=== PATIENT | female | born 1955 | race Caucasian/White ===

== ENCOUNTER → 2023-04-01 15:00 | Outpatient (BNV) | payer MEDICARE, MEDICAID, SELFPAY | PROVIDERS: Visit Provider Radiology Diagnostic Radiology | DX: Z12.31 Encounter for screening mammogram for malignant neoplasm of breast (principal) | CPT/HCPCS: 77063; 77067 ==

== ENCOUNTER 2023-04-01 15:05 | Outpatient (REF) | payer MEDICARE, MEDICAID, SELFPAY ==
--- NOTE | ~2023-04-01 | MM_ITS ---
EXAMINATION: MM SCREENING DIGITAL BREAST TOMOSYNTHESIS, BILATERAL CLINICAL INFORMATION: Screening. Asymptomatic. COMPARISON: Mammography: There are no recent previous examinations for comparison. The last mammogram on this patient placed 14 years ago. Those images are unavailable for comparison. TECHNIQUE: Digital breast tomosynthesis is performed in both the craniocaudal and mediolateral oblique views along with computer-aided detection (CAD). Synthesized 2D images are generated from the tomosynthesis. FINDINGS: There are scattered areas of fibroglandular density (ACR BI-RADS breast composition Category b). There are no significant masses, abnormal calcifications, or other abnormalities. MM/MM tomosynthesis screening BI IMPRESSION: No mammographic evidence of malignancy. ASSESSMENT: BI-RADS BI-RADS 1 - Negative RECOMMENDATION: Routine annual mammography screening. 1 year F/U This examination should not preclude the clinical evaluation of a suspicious palpable abnormality. This patient's information was entered into a reminder system with a target due date for their next mammogram.
== END 2023-04-01 15:06 | disposition home or self-care (01) ==
LOC: HO.MAMMO 15:05
PROVIDERS: Visit Provider Internal Medicine
DX: Z12.31 Encounter for screening mammogram for malignant neoplasm of breast (principal)
CPT/HCPCS: 77063; 77067

== ENCOUNTER 2023-05-02 11:07 | Emergency (ER) | payer MEDICARE, MEDICAID, SELFPAY ==
--- NOTE | ~2023-05-02 | XR_ITS ---
Examination: Bilateral knee. CLINICAL INDICATION: Fall and bruising. TECHNIQUE: 4 views each knee. COMPARISON: Right knee 10/26/2013 and 05/24/2010. FINDINGS: RIGHT KNEE: There is mild loss of medial and patellofemoral compartment joint space with moderate periarticular spurring. There is mild suprapatellar joint effusion. No loose bodies or bony erosive changes seen. The soft tissues are normal. LEFT KNEE: There is mild loss of medial and patellofemoral compartment joint space with moderate periarticular spurring. No loose body seen. There is mild suprapatellar joint effusion. No fracture or dislocation seen. XR/XR knee RT 3V IMPRESSION: Advanced degenerative changes bilateral knee joints with joint effusion. No visible loose bodies, acute fracture or dislocation seen.
--- NOTE | ~2023-05-02 | XR_ITS ---
Examination: Bilateral knee. CLINICAL INDICATION: Fall and bruising. TECHNIQUE: 4 views each knee. COMPARISON: Right knee 10/26/2013 and 05/24/2010. FINDINGS: RIGHT KNEE: There is mild loss of medial and patellofemoral compartment joint space with moderate periarticular spurring. There is mild suprapatellar joint effusion. No loose bodies or bony erosive changes seen. The soft tissues are normal. LEFT KNEE: There is mild loss of medial and patellofemoral compartment joint space with moderate periarticular spurring. No loose body seen. There is mild suprapatellar joint effusion. No fracture or dislocation seen. XR/XR knee LT 3V IMPRESSION: Advanced degenerative changes bilateral knee joints with joint effusion. No visible loose bodies, acute fracture or dislocation seen.
--- NOTE | ~2023-05-02 | CT_ITS ---
EXAMINATION: CT HEAD WITHOUT CONTRAST CLINICAL INFORMATION: Fall head strike COMPARISON: CT head from 03/20/2018 TECHNIQUE: Contiguous axial imaging was performed from the skull base to vertex without intravenous administration of contrast. This CT examination was performed using dose optimization techniques as appropriate, variously including the following: *Automated exposure control *Adjustment of mA and/or kV according to patient size (this includes techniques or standardized protocols for targeted exams where dose is matched to indication/reason for exam; i.e. extremities or head) *Use of iterative reconstruction technique DLP: 916 mGy-cm FINDINGS: There is no evidence of acute intracranial hemorrhage or territorial infarction. Chronic white matter small vessel ischemic changes. No abnormal mass effect or midline shift is seen. Wyatt to white matter differentiation is well preserved. No extra-axial fluid collections are identified. The ventricles are normal in size. There is no abnormal attenuation within the brain parenchyma. The osseous structures and soft tissues are normal. The mastoid air cells and visualized portions of the paranasal sinuses are well aerated. CT/CT cervical spine wo IV con IMPRESSION: 1. No acute intracranial pathology. 2. Chronic white matter small vessel ischemic changes. EXAMINATION: Noncontrast CT scan of the cervical spine. INDICATION: Fall COMPARISON: None. TECHNIQUE: Helical, multidetector axial images were obtained from the occiput to the upper thorax. Coronal and sagittal reformats of the cervical spine were provided for interpretation. DLP: 916 mGy-cm FINDINGS: No acute fractures or dislocations of the cervical spine are seen. Straightening of the normal cervical curvature which may be secondary to patient positioning versus muscle spasm. Multilevel degenerative changes. Anatomic alignment and positioning of the vertebral bodies and posterior elements is noted. The atlantoaxial joint and craniovertebral articulations are normal without evidence of subluxation. There is no prevertebral soft tissue swelling. The thyroid gland and visualized portions of the lung apices and mediastinum are unremarkable. IMPRESSION: 1. No acute visible fracture or dislocation. 2. Straightening of the normal cervical curvature which may be secondary to patient positioning versus muscle spasm. 3. Multilevel degenerative changes.
--- NOTE | 2023-05-02 11:18 | ED_ITS ---
HPI - Fall General Chief Complaint: Fall Stated Complaint: Fall Time Seen by Provider: 05/02/23 12:41 Source: patient and family Mode of arrival: ambulatory Limitations: no limitations History of Present Illness HPI Narrative: 67 yo female here with complaints of abrasion to face, swelling/pain to both knees after a fall yesterday. Patient reports she tripped on uneven sidewalk yesterday landing on both knees and hitting her mouth on the ground. No LOC. NO AC therapy use. Had headache last night none today. Here with complaints of abrasion to face, pain to both knees. No chest pain, abdominal pain, neck pain, back pain, vomiting, headache or vision changes. Tetanus UTD. No associated weakness, numbess, tingling in her LE. Related Data Allergies Allergy/AdvReac Type Severity Reaction Status Date / Time cinnamon [Cinnamon] Allergy Severe HIVES Verified 05/02/23 11:19 From Benadryl Allergy Severe SWELLING Uncoded 11/10/19 16:16 Review of Systems 2 Review of Systems: Yes all other systems are reviewed and are negative Constitutional: Constitutional: Reports no additional constitutional complaints, Denies body ache(s), Denies chills, Denies fever(s), Denies headache(s) and Denies weakness Eyes: Eyes: Reports no additional eye complaints and Denies change in vision ENT: Reports system reviewed and no additional complaints, except as documented, Denies dizziness, Denies headache(s), Denies nasal congestion, Denies nasal discharge and Denies neck pain Cardiovascular: Cardiovascular: Reports no additional cardiovascular complaints, Denies chest pain, Denies leg edema and Denies dyspnea Respiratory: Respiratory: Reports no additional respiratory complaints, Denies cough and Denies dyspnea Gastrointestinal: Gastrointestinal: Reports no additional gastrointestinal complaints, Denies abdominal pain, Denies diarrhea, Denies nausea and Denies vomiting Genitourinary: Genitourinary: Reports no additional female genitourinary complaints and Denies urinary incontinence Musculoskeletal: Musculoskeletal: Reports no additional musculoskeletal complaints, Denies back pain, Reports arthralgias, Reports joint swelling, Reports limited range of motion, Denies neck pain, Denies numbness and Denies tingling Integumentary/Breasts: Skin/Breast: Reports system reviewed and no additional complaints, except as docu and Denies rash Neurologic: Reports system reviewed and no additional complaints, except as documented, Denies Abnormal speech present, Denies dizziness, Denies headache(s), Denies numbness, Denies tingling and Denies weakness PMFSH Past Medical History Attestation statement: The following information was validated with the patient. Source: old records reviewed and nursing notes reviewed Social History Social History Advance Directives: No Physical Exam 2 Vital Signs: Vital Signs: Last Vital Signs Temp 97 F 05/02/23 11:20 Pulse 64 05/02/23 11:20 Resp 16 05/02/23 11:20 BP 135/78 05/02/23 11:20 Pulse Ox 97 05/02/23 11:20 O2 Del Method Room Air 05/02/23 11:20 BMI result Body Mass Index 24.7 Const: General: cooperative, healthy appearing, comfortable and no acute distress Orientation/consciousness: patient oriented x3 Limitations: no limitations HEENT: Head: Yes normal to inspection and No Goddard's sign Ears: hearing grossly normal bilaterally and TM's normal bilaterally General nose exam: N ormal external nose present Face and sinus: Yes normal facial exam Mouth: Normal oral and palatal mucosa present Mouth/tongue images: 1. +abrasion Teeth and gingiva: dentures Throat: Yes posterior oropharynx normal Eyes: General: appearance normal, both eyes and all related structures P upils: Equal, round and reactive pupils present Neck: Other: No cervical midline tenderness, step offs or deformities Neck: Yes normal visual inspection and Yes full ROM Chest: Chest palpation & inspection: normal inspection of the chest Resp: Effort & Inspection: normal respiratory effort Auscultation: clear to auscultation bilaterally Cardio: Rate: regular rate Rhythm: regular rhythm Peripheral pulses: P eripheral pulses 2+ throughout GI: Inspection: Yes normal to inspection Palpation (GI): Soft to palpation and nontender Auscultation: normal bowel sounds Back/Spine/Pelvis: Thoracic/Lumbar Spine: thoracic and lumbar spine normal to inspection Skin: General skin exam: no rashes or lesions noted Neuro: General: patient oriented x3, moves all extremities, no focal motor deficits and normal sensation to monofilament Cranial nerves: Yes CN's II-XII intact bilaterally, Yes Equal, round and reactive pupils present, Yes Bilaterally intact EOM present, Yes Nystagmus not present, Yes Normal facial strength present and Yes Midline tongue present Cognition (Neuro): normal cognition Speech: No Abnormal speech present Gait exam (Neuro): Normal gait present Motor exam (neuro): 5/5 motor strength present throughout S ensory Exam: Normal double simultaneous stimulation for sensation Extrem: Other: +ecchymosis to bilateral anterior knees Full active/passive ROM 2+ DP/PT pulses Normal distal sensation Course Course Course Narrative: This is a rapid medical exam: Additional HPI, ROS, PE not included below will be deferred to primary provider. Patient is a 67-year-old female presenting to the emergency department with complaint of bilateral knee pain and bruising as well as bruising/abrasion to lower lip after a trip and fall yesterday. She was walking outside grocery store and tripped on sidewalk. + head strike, no loss of consciousness. She takes ASA but is not anticoagulated. Bruising noted to bilateral anterior knees, R>L, abrasion to lower lip. Daughter states that patient's son is specifically requesting head CT. Plan: CT head and neck, knee xrays Medical Decision Making Medical Decision Making MDM Narrative: 67 yo female here with complaints of abrasion to face, swelling/pain to both knees after a fall yesterday. Patient reports she tripped on uneven sidewalk yesterday landing on both knees and hitting her mouth on the ground. No LOC. NO AC therapy use. Had headache last night none today. Here with complaints of abrasion to face, pain to both knees. No chest pain, abdominal pain, neck pain, back pain, vomiting, headache or vision changes. Tetanus UTD. No associated weakness, numbess, tingling in her LE. +ecchymosis to bilateral anterior knees Full active/passive ROM 2+ DP/PT pulses Normal distal sensation +abrasion to lower lip Due to age check ct head/cervical spine, also knee x-rays bilaterally Differential Diagnosis Differential Diagnoses: The differential diagnosis associated with the presentation includes contusion, fracture abrasion, facial fracture, ICH, cervical fracture Low suspicion for vascular injury/dislocation of LE, intra-abdominal or thoracic injury Admission/Observation Consideration of admission/observation: Escalation of care including admission/observation considered Low suspicion for vascular injury/dislocation of LE, intra-abdominal or thoracic injury requiring advanced imaging, urgent consultation Independent Interpretation I performed an independent interpretation of an: Plain X-Ray and CT Scan Interpretation: I independently reviewed the x-ray and CT scan agree with the radiology report Radiology Impression Discussion of test interpretation with radiology: I have reviewed the radiologist's reading. Radiologist Impression: [address] [address] [address] Scan Report Signed Patient: Caro Medina MR#: [id number] : 1955 Acct:[id number] Age/Sex: 67 / F ADM Date: 05/02/23 Loc: HO.ED Attending Dr: Ordering Physician: Jolanta Lynch NP Date of Service: 05/02/23 Procedure(s): CT cervical spine wo IV con Accession Number(s): [id number] cc: Physician,Unknown ; Jolanta Lynch NP~ EXAMINATION: CT HEAD WITHOUT CONTRAST CLINICAL INFORMATION: Fall head strike COMPARISON: CT head from 03/20/2018 TECHNIQUE: Contiguous axial imaging was performed from the skull base to vertex without intravenous administration of contrast. This CT examination was performed using dose optimization techniques as appropriate, variously including the following: *Automated exposure control *Adjustment of mA and/or kV according to patient size (this includes techniques or standardized protocols for targeted exams where dose is matched to indication/reason for exam; i.e. extremities or head) *Use of iterative reconstruction technique DLP: 916 mGy-cm FINDINGS: There is no evidence of acute intracranial hemorrhage or territorial infarction. Chronic white matter small vessel ischemic changes. No abnormal mass effect or midline shift is seen. Wyatt to white matter differentiation is well preserved. No extra-axial fluid collections are identified. The ventricles are normal in size. There is no abnormal attenuation within the brain parenchyma. The osseous structures and soft tissues are normal. The mastoid air cells and visualized portions of the paranasal sinuses are well aerated. CT/CT cervical spine wo IV con IMPRESSION: 1. No acute intracranial pathology. 2. Chronic white matter small vessel ischemic changes. EXAMINATION: Noncontrast CT scan of the cervical spine. INDICATION: Fall COMPARISON: None. TECHNIQUE: Helical, multidetector axial images were obtained from the occiput to the upper thorax. Coronal and sagittal reformats of the cervical spine were provided for interpretation. DLP: 916 mGy-cm FINDINGS: No acute fractures or dislocations of the cervical spine are seen. Straightening of the normal cervical curvature which may be secondary to patient positioning versus muscle spasm. Multilevel degenerative changes. Anatomic alignment and positioning of the vertebral bodies and posterior elements is noted. The atlantoaxial joint and craniovertebral articulations are normal without evidence of subluxation. There is no prevertebral soft tissue swelling. The thyroid gland and visualized portions of the lung apices and mediastinum are unremarkable. IMPRESSION: 1. No acute visible fracture or dislocation. 2. Straightening of the normal cervical curvature which may be secondary to patient positioning versus muscle spasm. 3. Multilevel degenerative changes. [place] [id number] XRay Report Signed Patient: Caro Medina MR#: [id number] : 1955 Acct:[id number] Age/Sex: 67 / F ADM Date: 05/02/23 Loc: HO.ED Attending Dr: Ordering Physician: Jolanta Lynch NP Date of Service: 05/02/23 Procedure(s): XR knee RT 3V Accession Number(s): [id number] cc: Physician,Unknown ; Jolanta Lynch NP~ Examination: Bilateral knee. CLINICAL INDICATION: Fall and bruising. TECHNIQUE: 4 views each knee. COMPARISON: Right knee 10/26/2013 and 05/24/2010. FINDINGS: RIGHT KNEE: There is mild loss of medial and patellofemoral compartment joint space with moderate periarticular spurring. There is mild suprapatellar joint effusion. No loose bodies or bony erosive changes seen. The soft tissues are normal. LEFT KNEE: There is mild loss of medial and patellofemoral compartment joint space with moderate periarticular spurring. No loose body seen. There is mild suprapatellar joint effusion. No fracture or dislocation seen. XR/XR knee RT 3V IMPRESSION: Advanced degenerative changes bilateral knee joints with joint effusion. No visible loose bodies, acute fracture or dislocation seen. Independent Historian Clinical information obtained from an independent historian. History obtained from or confirmed by: Other (daughter ) Tests considered The following testing was considered but not selected: Low suspicion for vascular injury/dislocation of LE, intra-abdominal or thoracic injury requiring advanced CT imaging Prescription Management I considered prescription management with: Pain Medication Discharge Plan Discharge Clinical Impression: Contusion of knee, left, Contusion of knee, right, Abrasion of face Patient Disposition: Home, Self-Care Instructions: Contusion in Adults (ED), Abrasion (ED) Additional Instructions: your x-rays of your knees show some swelling but no fractures. Apply ice to the knees. Use the compression bandage to help with swelling Your CT scans of your head and neck are normal. Please keep the abrasion on your lip clean and apply topical antibiotic ointment daily. Las radiograf?as de las rodillas muestran algo de hinchaz?n natacha no fracturas. Aplicar hielo en las rodillas. Utilice el vendaje de compresi?n para ayudar con la hinchaz?n. Carlie tomograf?as computarizadas de cem y jayesh son normales. Mantenga limpia la abrasi?n del labio y aplique un stephen?ento antibi?nii t?ulices diariamente. Referrals: Physician,Willis J [Primary Care Provider] - 1 week Interventions: ED Discharge Assessment Last Done: 05/02/23 13:04 Discharge Date/Time: 05/02/23 13:05 Print Language: [place]
[2023-05-02 11:20] VITALS: BP 135/78; PULSE 64; RESP 16; TEMP 36.1; O2SAT 97; BMI 24.7
== END 2023-05-02 13:05 | disposition home or self-care (01) ==
PROVIDERS: Emergency Provider Student in an Organized Health Care Education/Training Program
DX: S00.81XA Abrasion of other part of head, initial encounter (principal); S80.02XA Contusion of left knee, initial encounter; S80.01XA Contusion of right knee, initial encounter; W01.0XXA Fall on same level from slipping, tripping and stumbling without subsequent striking against object, initial encounter; Y93.89 Activity, other specified; Y92.9 Unspecified place or not applicable; Y99.9 Unspecified external cause status; R51.9 Headache, unspecified
CPT/HCPCS: 70450; 72125; 73562; 99283; 99284

== ENCOUNTER 2024-01-16 13:30 | Emergency (ER) | payer OTHER, SELFPAY ==
--- NOTE | ~2024-01-16 | CT_ITS ---
EXAMINATION: CT ABDOMEN AND PELVIS WITH CONTRAST CLINICAL INFORMATION: Lower abdominal pain radiating to flanks. Nausea and vomiting. History of bypass. COMPARISON: None available. TECHNIQUE: Multidetector volumetric images were obtained from the superior aspect of the liver through the pubic symphysis following administration 85 mL of Omnipaque 350 intravenous contrast. Sagittal and coronal reformatted images were obtained on the technologist's workstation. Oral contrast: No This CT examination was performed using dose optimization techniques as appropriate, variously including the following: *Automated exposure control *Adjustment of mA and/or kV according to patient size (this includes techniques or standardized protocols for targeted exams where dose is matched to indication/reason for exam; i.e. extremities or head) *Use of iterative reconstruction technique DLP: 752 mGy-cm FINDINGS: LUNG BASES: The lung bases appear clear, with no evidence of inflammation or nodules. LIVER, GALLBLADDER, AND BILIARY TREE: The liver appears unremarkable in size, shape, and attenuation. No focal hepatic lesion identified. Status post cholecystectomy. Intrahepatic and extrahepatic bile ducts upper normal in diameter to mildly dilated for patient of this age who is status post cholecystectomy, mildly increased compared with most recent prior contrast-enhanced CT dated September 01, 2015. Common bile duct measures up to approximately 0.9 cm. No stone or mass directly visualized in the head of the pancreas/ampulla. PANCREAS: Unremarkable SPLEEN: Unremarkable ADRENAL GLANDS: Unremarkable KIDNEYS AND URETERS: The kidneys appear unremarkable in size, shape, and attenuation. No hydronephrosis, hydroureter, or calculi seen. BLADDER: Unremarkable GASTROINTESTINAL TRACT: Status post gastric bypass. Severe diverticulosis predominantly involving the sigmoid colon. No diverticulitis identified. Normal-appearing distal ileum and vermiform appendix. ABDOMINAL WALL: No significant hernia is appreciated. LYMPH NODES: No evidence of adenopathy by size criteria. VASCULAR: Unremarkable PELVIC VISCERA: Status post hysterectomy. OSSEOUS STRUCTURES: Unremarkable CT/CT abdomen pelvis w IV con IMPRESSION: . Intrahepatic and extrahepatic bile ducts upper normal in diameter to mildly dilated for patient of this age who is status post cholecystectomy, mildly increased compared with most recent prior contrast-enhanced CT dated September 01, 2015. Common bile duct measures up to approximately 0.9 cm. No stone or mass directly visualized in the head of the pancreas/ampulla. Status post gastric bypass. Severe diverticulosis predominantly involving the sigmoid colon. No diverticulitis identified. Electronically signed by: Klaus Larios MD 01/16/2024 04:47 PM EST [facility]
--- NOTE | 2024-01-16 13:39 | ED.ABDPAIN ---
HPI - Abdominal Pain General Chief Complaint: Abdominal Pain Stated Complaint: abd pain Time Seen by Provider: 01/16/24 13:50 Source: patient and family Mode of arrival: ambulatory Limitations: no limitations History of Present Illness ED Provider: Lenka Lubin APRN HPI narrative: 68 yo female with history of gastric bypass presents the ER with complaints of lower abdominal pain with radiation to her lower back with waking with nausea and vomiting x2. No urinary symptoms, fevers, chills, diarrhea, constipation. Related Data Previous Rx's ?Medication ?Instructions ?Recorded cefuroxime axetil 500 mg tablet 500 mg PO BID #14 tabs 01/16/24 phenazopyridine 200 mg tablet 200 mg PO TID PRN pain 6 doses #6 01/16/24 (Pyridium) tabs Allergies Allergy/AdvReac Type Severity Reaction Status Date / Time cinnamon [Cinnamon] Allergy Severe HIVES Verified 01/16/24 13:46 pork derived (porcine) Allergy Anaphylaxis Verified 01/16/24 13:46 From Benadryl Allergy Severe SWELLING Uncoded 11/10/19 16:16 Review of Systems Review of Systems Yes all other systems are reviewed and are negative Constitutional: Reports no additional constitutional complaints, Denies body ache(s), Denies chills, Denies fever(s), Denies headache(s) and Denies weakness Eyes: Reports no additional eye complaints and Denies change in vision Reports system reviewed and no additional complaints, except as documented, Denies dizziness, Denies headache(s), Denies nasal congestion, Denies nasal discharge and Denies neck pain Cardiovascular: Reports no additional cardiovascular complaints, Denies chest pain, Denies leg edema and Denies dyspnea Respiratory: Reports no additional respiratory complaints, Denies cough and Denies dyspnea Gastrointestinal: Reports no additional gastrointestinal complaints, Reports abdominal pain, Denies diarrhea, Reports nausea and Reports vomiting Genitourinary: Reports no additional female genitourinary complaints, Denies hematuria, Denies dysuria, Denies pelvic pain, Denies urinary incontinence, Denies urinary hesitancy, Denies urinary urgency and Denies vaginal discharge Musculoskeletal: Reports no additional musculoskeletal complaints, Reports back pain, Denies arthralgias, Denies joint swelling, Denies neck pain, Denies numbness and Denies tingling Skin/Breast: Reports system reviewed and no additional complaints, except as docu and Denies rash Reports system reviewed and no additional complaints, except as documented, Denies Abnormal speech present, Denies dizziness, Denies headache(s), Denies numbness, Denies tingling and Denies weakness PMFSH Past Medical History Attestation statement: The following information was validated with the patient. Source: old records reviewed and nursing notes reviewed Social History Social History Smoked in Last 30 Days: No Use of substances other than those prescribed or required for medical reasons: No Advance Directives: No Advance Directives Information Provided: Yes Do you have a plan to hurt others: No Plan Physical Exam ED Vital Signs: Vital Signs - 24 hr 01/16/24 13:44 01/16/24 14:16 01/16/24 16:07 Temperature 98.2 F 98.3 F Pulse Rate 69 55 50 Respiratory Rate 18 16 20 Blood Pressure 137/49 L 134/54 L Pulse Oximetry 97 96 100 Oxygen Delivery Method Room Air Room Air Room Air BMI result Body Mass Index 29.0 Const General: cooperative, healthy appearing, comfortable and no acute distress Orientation/consciousness: patient oriented x3 Limitations: no limitations HENMT Head: Yes normal to inspection Ears: hearing grossly normal bilaterally General nose exam: Normal external nose present Face and sinus: Yes normal facial exam Mouth: Normal oral and palatal mucosa present Throat: Yes posterior oropharynx normal Eyes General: appearance normal, both eyes and all related structures Pupils: Equal, round and reactive pupils present Neck Neck: Yes normal visual inspection Chest Chest palpation & inspection: normal inspection of the chest Resp Effort & Inspection: normal respiratory effort Auscultation: clear to auscultation bilaterally Cardio Rate: regular rate Rhythm: regular rhythm Peripheral pulses: Peripheral pulses 2+ throughout GI Inspection: Yes normal to inspection Palpation (GI): Soft to palpation, Tenderness to palpation present (GI) in the LLQ and in the RLQ; with no rebound tenderness and no guarding Auscultation: normal bowel sounds Back/Spine/Pelvis Thoracic/Lumbar Spine: thoracic and lumbar spine normal to inspection Skin General skin exam: no rashes or lesions noted Neuro General: patient oriented x3, no focal motor deficits and normal sensation to monofilament Cranial nerves: Yes Equal, round and reactive pupils present Cognition (Neuro): normal cognition Speech: No Abnormal speech present Gait exam (Neuro): Normal gait present Motor exam (neuro): 5/5 motor strength present throughout Extrem General: Yes normal to inspection, Yes no pedal edema and Yes no calf tenderness Course Course Course Narrative: This is a Rapid Medical Exam performed in triage by Clarice Cowan PA-C. Full HPI, ROS and PE to be performed by primary ED provider. 68 yo F w/pmhx gastric bypass, hypoglycemia, presenting to the ED c/o lower abdominal pain radiating to bilateral flanks x today. Admits to N/V. denies urinary sx PE: abdomen soft w/lower ttp, no rebound or guarding Plan: labs, UA Reevaluation(s) Reevaluation #1: UA is consistent with UTI. Labs normal. CT shows Intrahepatic and extrahepatic bile ducts upper normal in diameter to mildly dilated for patient of this age who is status post cholecystectomy, mildly increased compared with most recent prior contrast-enhanced CT dated September 01, 2015. Common bile duct measures up to approximately 0.9 cm. No stone or mass directly visualized in the head of the pancreas/ampulla. Status post gastric bypass. Severe diverticulosis predominantly involving the sigmoid colon. No diverticulitis identified. Patient has no upper abdominal pain. Shows normal LFTs and normal lipase. Likely incidental finding. Will discharge patient home with antibiotic and supportive measures. Reviewed worrisome signs and symptoms of when to return to the emergency room. Comfortable plan for discharge home. Medical Decision Making Medical Decision Making MDM Narrative: 68 yo female with history of gastric bypass presents the ER with complaints of lower abdominal pain with radiation to her lower back with waking with nausea and vomiting x2.? No urinary symptoms, fevers, chills, diarrhea, constipation. TTP to lower abdomen L>R Abdomen soft, nondistended with normal bowel sounds Will obtain labs, UA, CT Will provide analgesia, antiemetic Differential Diagnosis Differential Diagnoses: The differential diagnosis associated with the presentation includes UTI, pyelonephritis, renal colic, diverticulitis, appendicitis Admission/Observation Consideration of admission/observation: Escalation of care including admission/observation considered Lab Data MDM Lab Attestation statement: I reviewed the patient's lab results. 01/16/24 13:58 01/16/24 13:58 Labs: Lab Results 01/16/24 Range/Units 13:58 WBC 6.6 (4.8-10.8) X10*3/uL RBC 4.28 (4.20-5.50) X10*6/uL Hgb 12.5 (12.0-16.0) g/dl Hct 37.4 (37.0-47.0) % MCV 87.4 (80.0-98.0) fL MCH 29.2 (27.0-33.0) pg MCHC 33.4 (31.0-35.0) g/dl RDW 14.3 (11.0-16.0) % Plt Count 260 (160-400) X10*3/uL MPV 10.8 (9.4-12.3) fL Immature Gran % (Auto) 0.3 (0.0-0.4) % Neut % (Auto) 63.3 (45-73) % Lymph % (Auto) 25.9 (20-40) % [place] % (Auto) 8.2 (2-11) % Eos % (Auto) 1.5 (0-4) % Baso % (Auto) 0.8 (0-2) % Lymph # (Auto) 1.7 (1.2-4.9) X10*3/uL [place] # (Auto) 0.5 (0.1-1.2) X10*3/uL Eos # (Auto) 0.1 (0.0-0.4) X10*3/uL Baso # (Auto) 0.1 (0.0-0.2) X10*3/uL Abs Immat Gran (auto) 0.02 (0.00-0.03) X10*3/uL Absolute Neuts (auto) 4.2 (2.0-8.3) x10*3/uL Absolute Nucleated RBC 0.000 (0.0-0.012) X10*3/uL Nucleated RBC % (auto) 0.0 (0.0-0.2) /100WBC Sodium 138 (135-145) mmol/L Potassium 3.9 (3.3-5.1) mmol/L Chloride 105 (96-108) mmol/L Carbon Dioxide 24 (22-29) mmol/L Anion Gap 13 (12-20) BUN 10 (9-16) mg/dL Creatinine 0.80 (0.5-1.4) mg/dL Estim Creat Clear Calc 62.5 Estimated GFR > 60 Random Glucose 90 (60-115) mg/dL Calcium 9.6 (8.4-10.2) mg/dL Magnesium 2.3 (1.6-2.6) mg/dL Total Bilirubin 0.4 (0.0-1.0) mg/dL Direct Bilirubin 0.2 (0.0-0.5) mg/dL AST 26 (5-31) U/L ALT 16 (0-31) U/L Alkaline Phosphatase 69 (39-117) U/L Total Protein 7.1 (6.5-8.0) g/dL Albumin 4.4 (3.5-5.0) g/dL Lipase 37 (8-78) U/L Urine Color Yellow Urine Appearance Clear Urine pH 7.5 (5.0-9.0) Ur Specific [place] 1.015 (1.005-1.025) Urine Protein Negative (Neg-Trace) mg/dL Urine Glucose (UA) Negative (Negative) mg/dL Urine Ketones Trace (Negative) mg/dL Urine Blood Negative (Negative) Urine Nitrite Negative (Negative) Ur Leukocyte Esterase Moderate (2+) H (Negative) Urine RBC 0-2 (0-2) /HPF Urine WBC 0-5 (0-5) /HPF Ur Squamous Epith Cells 6-10 (0-2) /HPF Urine Bacteria None Seen (None Seen) Hyaline Casts 0-2 (0-2) /LPF Independent Interpretation I performed an independent interpretation of an: CT Scan Interpretation: I independently viewed the CT scan agree with the radiology report Radiology Impression Discussion of test interpretation with radiology: I have reviewed the radiologist's reading. Radiologist Impression: Launch?Image [place] [id number] CT Scan Report Signed Patient: Caro Medina MR#: [id number] : 1955 Acct:[id number] Age/Sex: 68 / F ADM Date: 01/16/24 Loc: HO.ED Attending Dr: Ordering Physician: Clarice Cowan Date of Service: 01/16/24 Procedure(s): CT abdomen pelvis w IV con Accession Number(s): [id number] cc: CECILLE ROMAN TELECOMMUNICATIONS SALES REPRESENTATIVE; Clarice Cowan~ EXAMINATION: CT ABDOMEN AND PELVIS WITH CONTRAST CLINICAL INFORMATION: Lower abdominal pain radiating to flanks. Nausea and vomiting. History of bypass. COMPARISON: None available. TECHNIQUE: Multidetector volumetric images were obtained from the superior aspect of the liver through the pubic symphysis following administration 85 mL of Omnipaque 350 intravenous contrast. Sagittal and coronal reformatted images were obtained on the technologist's workstation. Oral contrast: No This CT examination was performed using dose optimization techniques as appropriate, variously including the following: *Automated exposure control *Adjustment of mA and/or kV according to patient size (this includes techniques or standardized protocols for targeted exams where dose is matched to indication/reason for exam; i.e. extremities or head) *Use of iterative reconstruction technique DLP: 752 mGy-cm FINDINGS: LUNG BASES: The lung bases appear clear, with no evidence of inflammation or nodules. LIVER, GALLBLADDER, AND BILIARY TREE: The liver appears unremarkable in size, shape, and attenuation. No focal hepatic lesion identified. Status post cholecystectomy. Intrahepatic and extrahepatic bile ducts upper normal in diameter to mildly dilated for patient of this age who is status post cholecystectomy, mildly increased compared with most recent prior contrast-enhanced CT dated September 01, 2015. Common bile duct measures up to approximately 0.9 cm. No stone or mass directly visualized in the head of the pancreas/ampulla. PANCREAS: Unremarkable SPLEEN: Unremarkable ADRENAL GLANDS: Unremarkable KIDNEYS AND URETERS: The kidneys appear unremarkable in size, shape, and attenuation. No hydronephrosis, hydroureter, or calculi seen. BLADDER: Unremarkable GASTROINTESTINAL TRACT: Status post gastric bypass. Severe diverticulosis predominantly involving the sigmoid colon. No diverticulitis identified. Normal-appearing distal ileum and vermiform appendix. ABDOMINAL WALL: No significant hernia is appreciated. LYMPH NODES: No evidence of adenopathy by size criteria. VASCULAR: Unremarkable PELVIC VISCERA: Status post hysterectomy. OSSEOUS STRUCTURES: Unremarkable CT/CT abdomen pelvis w IV con IMPRESSION: . Intrahepatic and extrahepatic bile ducts upper normal in diameter to mildly dilated for patient of this age who is status post cholecystectomy, mildly increased compared with most recent prior contrast-enhanced CT dated September 01, 2015. Common bile duct measures up to approximately 0.9 cm. No stone or mass directly visualized in the head of the pancreas/ampulla. Status post gastric bypass. Severe diverticulosis predominantly involving the sigmoid colon. No diverticulitis identified. Independent Historian Clinical information obtained from an independent historian. History obtained from or confirmed by: Other (daughter) Medications Administered Discontinued Medications Generic Name Dose Route Start Last Admin Trade Name Freq PRN Reason Stop Dose Admin Iohexol 100 ml 01/16/24 15:25 01/16/24 15:25 Iohexol 350 Mg/Ml 100 Ml Infus..Btl IV 01/16/24 15:26 85 ml ONCE ONE Administration Morphine Sulfate 2 mg 01/16/24 14:06 01/16/24 14:12 Morphine Sulfate 2 Mg/Ml Cartridge IVPUSH 01/16/24 14:07 2 mg ONCE ONE Administration Protocol Ondansetron HCl 4 mg 01/16/24 14:06 01/16/24 14:12 Ondansetron Hcl 4 Mg/2 Ml Vial IVPUSH 01/16/24 14:07 4 mg ONCE ONE Administration Discharge Plan Discharge Clinical Impression: Acute UTI Patient Disposition: Home, Self-Care Instructions: Urinary Tract Infection in Women (ED) Additional Instructions: Increase fluids, rest Your lab work is reassuring Your CT scan is normal Follow-up with primary care doctor for any continued symptoms Return for any worsening symptoms Prescriptions: New cefuroxime axetil 500 mg tablet 500 mg PO BID Qty: 14 0RF phenazopyridine [Pyridium] 200 mg tablet 200 mg PO TID PRN (Reason: pain) Qty: 6 0RF Referrals: Cecille Roman, TELECOMMUNICATIONS SALES REPRESENTATIVE [Primary Care Provider] - 1 week Print Language: Greenlandic
[2024-01-16 13:44] VITALS: BP 137/49; PULSE 69; RESP 18; TEMP 36.8; O2SAT 97; BMI 29.0
[2024-01-16 14:03] LABS: MANUAL DIFF FLAG NO
[2024-01-16 14:04] LABS: Basophils Absolute Auto 0.1 X10*3/uL (0.0-0.2); Basophils Percent Auto 0.8 % (0-2); Eosinophils Absolute Auto 0.1 X10*3/uL (0.0-0.4); Eosinophils Percent Auto 1.5 % (0-4); Hematocrit 37.4 % (37.0-47.0); Hemoglobin 12.5 g/dl (12.0-16.0); Imm Gran Abs Auto 0.02 X10*3/uL (0.00-0.03); Imm Gran Pct Auto 0.3 % (0.0-0.4); Lymphocytes Absolute Auto 1.7 X10*3/uL (1.2-4.9); Lymphocytes Percent Auto 25.9 % (20-40); Mean Corpuscular HGB Conc 33.4 g/dl (31.0-35.0); Mean Corpuscular Hemoglobin 29.2 pg (27.0-33.0); Mean Corpuscular Volume 87.4 fL (80.0-98.0); Mean Platelet Volume 10.8 fL (9.4-12.3); Monocytes Absolute Auto 0.5 X10*3/uL (0.1-1.2); Monocytes Percent Auto 8.2 % (2-11); Neutrophils Absolute Auto 4.2 x10*3/uL (2.0-8.3); Neutrophils Percent Auto 63.3 % (45-73); Platelet Count 260 X10*3/uL (160-400); Red Blood Count 4.28 X10*6/uL (4.20-5.50); Red Cell Distribution Width 14.3 % (11.0-16.0); White Blood Count 6.6 X10*3/uL (4.8-10.8)
[2024-01-16 14:05] LABS: Appearance Urine Clear; Color Urine Yellow; Glucose Urine UA Negative (Negative); Leukocyte Esterase Urine Moderate (2+) (Negative); Nitrite Urine Negative (Negative); PH 7.5 (5.0-9.0); Specific Gravity - Urine 1.015 (1.005-1.025); UMIC TRIGGER UACC YES; Urine Blood Negative (Negative); Urine Ketones Trace mg/dL (Negative); Urine Protein Negative (Neg-Trace)
[2024-01-16 14:12] LABS: Bacteria Urine None Seen (None Seen); Hyaline Casts Urine 0-2 /LPF (0-2); RBC Urine 0-2 /HPF (0-2); UACC Culture Trigger YES; WBC Urine 0-5 /HPF (0-5)
[2024-01-16] MEDS: ondansetron HCL 4 MG/2 ML VIAL IVPUSH (14:12)
[2024-01-16] MEDS: Morphine Sulfate 2 MG/ML CARTRIDGE IVPUSH (14:12)
[2024-01-16 14:16] VITALS: PULSE 55; RESP 16; O2SAT 96
[2024-01-16 14:26] LABS: Alanine Aminotransferase 16 U/L (0-31); Albumin Level 4.4 g/dL (3.5-5.0); Alkaline Phosphatase 69 U/L (39-117); Anion Gap 13 (12-20); Aspartate Amino Transferase 26 U/L (5-31); Bilirubin Direct 0.2 mg/dL (0.0-0.5); Bilirubin Total 0.4 mg/dL (0.0-1.0); Blood Urea Nitrogen 10 mg/dL (9-16); Calcium 9.6 mg/dL (8.4-10.2); Carbon Dioxide 24 mmol/L (22-29); Chloride 105 mmol/L (96-108); Creatinine Clr Calc Pharmacy 62.5; Estimated Glomerular Filt Rate > 60; Glucose Random 90 mg/dL (60-115); Lipase 37 U/L (8-78); Magnesium 2.3 mg/dL (1.6-2.6); Potassium 3.9 mmol/L (3.3-5.1); Sodium 138 mmol/L (135-145); Total Protein 7.1 g/dL (6.5-8.0)
[2024-01-16] MEDS: iohexoL 350 MG/ML 100 ML INFUS..BTL IV (15:25)
[2024-01-16 16:07] VITALS: BP 134/54; PULSE 50; RESP 20; TEMP 36.8; O2SAT 100
[2024-01-16 17:24] VITALS: BP 134/54; PULSE 50; RESP 20; TEMP 36.8; O2SAT 100
== END 2024-01-16 17:29 | disposition home or self-care (01) ==
PROVIDERS: Physician Assistant; Emergency Provider Emergency Medicine; PCP Nurse Practitioner Family
DX: N39.0 Urinary tract infection, site not specified (principal); R11.2 Nausea with vomiting, unspecified
CPT/HCPCS: 36415; 74177; 80048; 80076; 81001; 83690; 83735; 85025; 87086; 96374; 96375; 99284; J2270; J2405; Q9967

== ENCOUNTER 2024-02-02 15:00 | Outpatient (RCR) | payer OTHER, SELFPAY | END 2024-12-14 13:05 | disposition home or self-care (01) | LOC: HO.PT 15:00 | PROVIDERS: Visit Provider Physician Assistant | DX: M25.552 Pain in left hip (principal); M25.551 Pain in right hip; M25.561 Pain in right knee; M25.562 Pain in left knee; G89.28 Other chronic postprocedural pain | CPT/HCPCS: 97110; 97161 ==